=== PATIENT | male | born 1970 | race Caucasian/White ===

== ENCOUNTER 2017-02-02 09:32 | Outpatient (CLI) | payer OTHER ==
[2017-02-02 10:19] LABS: eGFR (African) > 60; eGFR (Non-African) > 60
== END 2017-02-02 10:22 ==
LOC: LAB 09:32
PROVIDERS: ATTEND Family Medicine
DX: E11.9 Type 2 diabetes mellitus without complications (principal); I10 Essential (primary) hypertension; E78.1 Pure hyperglyceridemia
CPT/HCPCS: 36415; 80048; 80061; 83036

== ENCOUNTER 2018-06-14 10:29 | Outpatient (CLI) | payer OTHER ==
--- NOTE | 2018-06-14 15:50 | HISTORY AND PHYSICAL REPORT ---
REFERRING PHYSICIAN: Dr. Demarcus Gomez Dear Demarcus: HISTORY OF PRESENT ILLNESS: I had the opportunity of seeing Mike Jackson today as an outpatient at [facility]. As you are aware, Mike is a very nice 48-year-old white male who suffered a work-related injury in 2001 and subsequently underwent decompressive back surgery at [facility]. He tells me that he has had leg pain since that time. He underwent a secondary surgical decompression, fusion, and instrumentation and had a fusion of L4-L5 and L5-S1 with a large posterior decompression and instrumentation. He was treated by Dr. Bradshaw, an interventional pain physician in the [place] area, who apparently attempted a nerve root block which was complicated by this surgery and could not be successfully performed. Mr. Jackson is somewhat hesitant to undergo any repeat nerve root block. He tells me he has constant low back pain and that the pain goes down his leg and it bothers him during the day and especially at night. He takes gabapentin 300 mg 3 times a day. He has been on up to 3600 mg of gabapentin, which was under Dr. Bradshaw's care, and said that he got very sedated on that medication regime. He also has diabetes mellitus. His last hemoglobin A1C was 7. His blood sugar today is 263. He has had previous nerve conduction velocity studies which revealed nerve root damage in his left lower extremity, which had necessitated the nerve root block. He denies pain in the right leg. He says he does have pain in the right low back but most of the symptoms are on the left side, low back, posterior leg, lateral calf and into the great toe, second toe, and L5 nerve root distribution. He rates his pain as severe as 9 over 10 on a visual analog scale and never better than 5 over 10 on a visual analog scale and he says it is constant. He feels like the left leg is weak and does result in insomnia. PAST MEDICAL HISTORY: 1. History of chronic pain. 2. Hypertension. 3. Arthritis. 4. Anxiety. 5. Depression. 6. Insulin-dependent diabetes. PAST SURGICAL HISTORY: 1. Lumbar fusion [place] [address] Nails. 2. An anterior and posterior revision with hardware replacement and a cage placed by Dr. Hernandez in 2003. CURRENT DAILY MEDICATIONS: 1. Lisinopril 10 mg daily. 2. Diclofenac 75 mg b.i.d. 3. Tramadol 50 mg p.r.n. 4. Nystatin powder b.i.d. 5. Fluoxetine 20 mg daily. 6. Glimepiride 4 mg daily. 7. Metformin 1000 mg b.i.d. 8. Gabapentin 300 mg b.i.d. Changed today to 300 mg in the a.m., noon, and 900 mg at bedtime. 9. Toujeo Solostar 14 units at bedtime. 10. Humalog per sliding scale. 11. Buspirone 10 mg b.i.d. ALLERGIES: He has no known drug allergies. SOCIAL HISTORY: He has never used tobacco, alcohol, or recreational drugs. He has been since 1988. He has 3 children. He lives at home with his . He completed the 12th. His former occupation was a metal fabricator. He is disabled due to his back injury in 2000 or 2001 while at work. FAMILY HISTORY: Father with heart disease and diabetes. Mother with diabetes. Both of his parents are . REVIEW OF SYSTEMS: In the last month or so, he reports night sweats, constipation, feeling depressed and feeling anxious. Pain is worsened with inactivity or in any position for too long. Pain is improved when he stays active and moving. PHYSICAL EXAMINATION: Vital Signs: BP: 166/80, P: 74, R: 20, oxygen saturation is 98% on room air, T: 98.3. Blood sugar today is 263. General: The patient is well nourished, well developed, and in no apparent distress. Awake, alert, and oriented. HEENT: Pupils are equal, round, and reactive to light and accommodation. Extraocular movements intact. No facial droop. Neck: There is full range of motion of the cervical spine. No evidence of adenopathy. Thyroid is nontender, not enlarged. Carotids are without bruits. Chest: Clear to auscultation bilaterally. Normal chest excursion. Heart: Regular rate and rhythm without murmur. Abdomen: Benign. Normoactive bowel sounds. Motor/sensory: Intact in the upper and lower extremities. Moves all extremities freely. Extremities: Strength is 4/5 in the lower extremities and 5/5 flexion at the hip. Positive straight leg raise. Reproducible pain at the left sciatic notch. Pain at the left sacroiliac joint. Large posterior lumbar scar. Reflexes are 2+ and equal at patellar tendons, absent at the Achilles tendon. ASSESSMENT: 1. Chronic left lower extremity radiculitis and possible nerve root injury. 2. Currently 2 previous L4-L5 and L5-S1 wide decompression and fusion. 3. Diabetes mellitus type 2 with blood sugar at 263. PLAN: At this point, I did describe an L5 nerve root block. I want him to follow up with Dr. Gomez regarding his blood sugars and he is reluctant to have that performed. To this extent, I did then discuss the possibility of a neurostimulator trial. I think this gentleman would be a very good candidate for palliative relief with a neurostimulator and I dispensed information on the neurostimulator. I am also going to increase his bedtime dose of gabapentin to 600 mg to 900 mg and leave his daytime dose, otherwise, unchanged. I will be glad to follow this gentleman up for a stimulator trial in the near future. Dr. Gomez, thank you very much for allowing me to take part in the care of this nice gentleman. I appreciate the opportunity to take part in the care of your patients. cc: Dr. Demarcus BREWER
== END 2018-06-14 10:34 ==
LOC: OUT 10:29
PROVIDERS: ATTEND Anesthesiology Pain Medicine
DX: M54.17 Radiculopathy, lumbosacral region (principal); M48.17 Ankylosing hyperostosis [Forestier], lumbosacral region; E11.9 Type 2 diabetes mellitus without complications
CPT/HCPCS: 99203; G0463

== ENCOUNTER 2018-08-29 19:04 | Emergency (ER) | payer OTHER ==
--- NOTE | 2018-08-29 19:12 | ED Physician Documentation ---
Sore Throat/Dental Pain - HISTORIAN Historian: patient - HPI Stated Complaint: right upper tooth pain/broken Chief Complaint: Dental Pain Onset: days ago (2) Context: Fractured Tooth Associated Symptoms: moderate. denies: fever, chills Further Comments: yes (tooth pain for two days after breaking a tooth. he has been taking OTC meds. He has not contacted his dentist . He states the pain is on the tooth and feels swollen no fever) - ROS CONST: no problems - PAST HX Past History: none Other History: diabetes Type 2, other (hypertension ) Immunizations: UTD Allergies/Adverse Reactions: Allergies Allergy/AdvReac Type Severity Reaction Status Date / Time No Known Allergies Allergy Verified 08/29/18 19:22 - SOCIAL HX Smoking History: cigarettes - FAMILY HX Family History: No - REVIEWED ASSESSMENTS Nursing Assessment Reviewed: Yes Vitals Reviewed: Yes Progress - Progress Progress: 1939: pain mildly improved and understanding plan of care DG CALL DENTIST will call with Lisinopril dose at home DG Dental Pain Physical Exam - EXAM General Appearance: no acute distress, alert Head/Neck: head nml inspection Eyes: eyes nml inspection Mouth/Throat: lips nml, pharynx nml, voice nml, no drooling, no air way proble ms, gum swelling around teeth (right upper tooth is broken no drainage mild swelling ) Ear/Nose: nml inspection Respiratory: no resp. distress, breath sounds nml CVS: reg. rate & rhythm, heart sounds nml Abdomen: soft, no distension Extremities: non-tender Skin: warm/dry, normal color Neuro/Psych: none Discharge Clincal Impression: Pain, dental Referrals: Demarcus Gomez MD [Primary Care Provider] - 2 Days Additional Instructions: 1. Amoxicillin 875 mg take 1 by mouth BID x 10 days 2. Medrol Dose pack 4 mg take as directed 3. Tramadol 50 mg take 1 by mouth every 12 hours as needed for pain 4. Warm salt water gargles 5. See Dentist 6. See PCP for b/p control 7. Return to ER for any concerns Condition: Stable Disposition: 01 HOME, SELF-CARE Decision to Admit: NO Date of Decison to Admit: 08/29/18 Decision Time: 20:15
[2018-08-29] MEDS ORDERED: KETOROLAC TROMETHAMINE 60 MG/2 ML VIAL IM ONE (19:22)
[2018-08-29] MEDS ORDERED: CloNIDine HCL 0.1 MG TABLET PO ONE (19:33)
[2018-08-29 20:21] VITALS: BP 153/75
== END 2018-08-29 20:10 | disposition home or self-care (01) ==
LOC: ED 19:04 → SUPCPDRO 19:04 → ED 20:10
DX: K08.89 Other specified disorders of teeth and supporting structures (principal)
CPT/HCPCS: 96372; J1885

== ENCOUNTER 2018-09-23 10:20 | Outpatient (CLI) | payer OTHER ==
[2018-09-23 11:05] LABS: eGFR (Non-African) > 60
== END 2018-09-23 10:22 ==
LOC: LAB 10:20
PROVIDERS: ATTEND Physician Assistant
DX: Z13.6 Encounter for screening for cardiovascular disorders (principal); E11.9 Type 2 diabetes mellitus without complications; I10 Essential (primary) hypertension
CPT/HCPCS: 36415; 80053; 80061; 83036

== ENCOUNTER 2018-12-05 17:05 | Outpatient (CLI) | payer OTHER ==
--- NOTE | 2018-12-05 19:08 | Diagnostic Imaging Report ---
PATRICIA DYER [facility] [address] [facility] [address] [address] Report Submission Date: Dec 05, 2018 6:18:59 PM ADMINISTRATIVE OFFICE MANAGER Patient Study Name: BRIAN CHAUDHARI Date: Dec 05, 2018 5:02:24 PM ADMINISTRATIVE OFFICE MANAGER Modality Type: DX Gender: M Description: UPPER EXTREMITY : 70 Institution: [facility] Physician: PATRICIA DYER Three views of right wrist Clinical history: Pain for 1 month. Findings: Examination right wrist in palmar, lateral and oblique views fails to demonstrate evidence of fracture, dislocation or other bone or joint pathology. Electronically signed on Dec 05, 2018 6:18:59 PM ADMINISTRATIVE OFFICE MANAGER by: Sunil BREWER
== END 2018-12-05 17:07 ==
LOC: RAD 17:05
PROVIDERS: ATTEND Family Medicine
DX: E11.9 Type 2 diabetes mellitus without complications (principal); M25.531 Pain in right wrist
CPT/HCPCS: 36415; 73110; 83036

== ENCOUNTER 2019-04-10 14:33 | Outpatient (CLI) | payer OTHER ==
[2019-04-10 15:06] LABS: BASOPHILS % 0.5 % (0.0-1.5); EOSINOPHILS % 5.7 % (0.0-6.8); MONOCYTES % 8.6 % (0.0-11.0); NEUTROPHILS # 4.8 # k/uL (1.4-7.7)
--- NOTE | 2019-04-10 15:21 | Diagnostic Imaging Report ---
PATRICIA DYER [facility] [address] [facility].[address] [address] Report Submission Date: April 10, 2019 3:18:14 PM CDT Patient Study Name: BRIAN CHAUDHARI Date: April 10, 2019 2:55:09 PM CDT Modality Type: DX Gender: M Description: CHEST 2VIEW : 70 Institution: [facility] Physician: PATRICIA DYER CHEST 2VIEW HISTORY: CHEST PAIN WITH SHORTNESS OF BREATH. FINDINGS: PA and lateral chest x-ray demonstrate lungs to be clear of focal infiltrates and expanded bilaterally. Calcified granulomas in the right lung are present and slight elevation of right hemidiaphragm is seen. Cardiac silhouette and bony thorax are within normal limits. IMPRESSION: No active intrathoracic disease seen. Electronically signed on April 10, 2019 3:18:14 PM CDT by: Dennis BREWER
[2019-04-10 17:42] LABS: eGFR (Non-African) > 60
== END 2019-04-10 14:35 ==
LOC: RT 14:33
PROVIDERS: ATTEND Family Medicine
DX: R07.2 Precordial pain (principal); R06.09 Other forms of dyspnea; I10 Essential (primary) hypertension
CPT/HCPCS: 36415; 71046; 80053; 84484; 85025

== ENCOUNTER 2019-05-30 13:01 | Outpatient (CLI) | payer OTHER ==
[2019-05-30 13:36] LABS: eGFR (Non-African) > 60
--- NOTE | 2019-05-30 16:39 | Diagnostic Imaging Report ---
MACRINA DIXON [facility] [address] [facility] [address] [place] [address]. [id number] Report Submission Date: May 30, 2019 4:06:08 PM CDT Patient Study Name: BRIAN CHAUDHARI Date: May 30, 2019 1:55:27 PM CDT Modality Type: CT\SR Gender: M Description: CT ABD/PELV W/CON : 70 Institution: [facility] Physician: MACRINA DIXON Exam: CT abdomen and pelvis with contrast. History: Abdominal pain. Axial images through the abdomen and pelvis with oral contrast and after IV infusion of 93 mL Omnipaque 350 is submitted along with sagittal and coronal reformatted images. The visualized lower lung antonio are clear. No free intraperitoneal air is identified. The gallbladder is contracted without stones. The liver, spleen and pancreas are normal attenuation and enhancement without space-occupying lesion. The adrenal glands are normal configuration. The abdominal aorta is of normal caliber. No periaortic lymphadenopathy is identified. Both kidneys are normal attenuation and enhancement without hydronephrosis. The urinary bladder is distended without intrinsic filling defect. The small bowel is of normal caliber. Air and stool seen throughout the large intestine. No inflammatory changes in the mesentery or ascites is identified. The visualized appendix is of normal configuration. Fusion of the lower lumbar spine is noted. Impression: No hydronephrosis or hydroureter is identified. Nonspecific bowel gas pattern. No inflammatory changes in the mesentery or ascites is identified. Electronically signed on May 30, 2019 4:06:08 PM CDT by: Eric BREWER
== END 2019-05-30 13:03 ==
LOC: RAD 13:01
PROVIDERS: ATTEND Nurse Practitioner Family
DX: R10.9 Unspecified abdominal pain (principal)
CPT/HCPCS: 36415; 74177; 82565; Q9967

== ENCOUNTER 2019-06-19 12:03 | Outpatient (CLI) | payer OTHER ==
[2019-06-19 12:53] LABS: eGFR (Non-African) > 60
--- NOTE | 2019-06-19 13:25 | Diagnostic Imaging Report ---
PATRICIA DYER [facility] [address] [facility].[address] [address] Report Submission Date: Jun 19, 2019 1:09:06 PM CDT Patient Study Name: BRIAN CHAUDHARI Date: Jun 19, 2019 12:20:15 PM CDT Modality Type: DX Gender: M Description: CHEST 2VIEW : 70 Institution: [facility] Physician: PATRICIA DYER Examination: PA and lateral chest. History: Evaluate lung antonio. Comparison exam: 10 Apr 2019 Findings: PA and lateral views of the chest demonstrates a normal cardiac and mediastinal silhouette. Elevated right hemidiaphragm. No focal infiltrate. No blunting of the costophrenic margins. Stable granuloma. Osseous structures are appropriate for age. Impression: No acute pulmonary process. Electronically signed on Jun 19, 2019 1:09:06 PM CDT by: Patrick BREWER
[2019-06-19 13:36] LABS: BASOPHILS % 1 % (0-2); SEGMENTED NEUTROPHILS % 66 % (39-79)
== END 2019-06-19 12:05 ==
LOC: RT 12:03
PROVIDERS: ATTEND Family Medicine
DX: R06.09 Other forms of dyspnea (principal); R07.9 Chest pain, unspecified; I10 Essential (primary) hypertension; R10.9 Unspecified abdominal pain
CPT/HCPCS: 36415; 71046; 80053; 84484; 85025

== ENCOUNTER 2019-09-04 11:14 | Outpatient (CLI) | payer OTHER | END 2019-09-04 11:25 | LOC: LAB 11:14 | PROVIDERS: ATTEND Family Medicine | DX: E11.9 Type 2 diabetes mellitus without complications (principal) | CPT/HCPCS: 36415; 83036 ==